=== PATIENT | male | born 1975 | race Caucasian/White ===

== ENCOUNTER → 2017-01-17 | Outpatient (CLI) | payer BC ==
[~2017-01-17] MED LIST: AMBIEN 10MG10 M1 PO; ATIVAN1 MG PO; CLARITIN10 MG PO; CYMBALTA; CYPROHEPTADINE4 MG PO; DESYREL 50MG50 MG PO; FLOMAX 0.40.4 MG/CAP PO; HYDROMORPHONE HY8 MG PO; LAMICTAL; LAMICTAL 100MG100 MG; LEXAPRO20 MG PO; MORPHINE 10 MG/ML EP; NORCO 325 MG-51 TAB PO; OPANA ER20 MG PO; PRILOSEC10 MG PO; ZOFRAN 4MG T4 MG/TAB PO
== END ==
LOC: BHSO 09:48
DX: F41.1 Generalized anxiety disorder (principal)

== ENCOUNTER → 2017-02-25 | Outpatient (CLI) | payer BC | LOC: BHSO 10:14 | DX: F41.1 Generalized anxiety disorder (principal) ==

== ENCOUNTER → 2017-04-21 | Outpatient (CLI) | payer BC | LOC: BHSO 09:41 | DX: F41.1 Generalized anxiety disorder (principal) ==

== ENCOUNTER → 2018-02-03 | Outpatient (CLI) | payer BC | LOC: BHSO 11:19 | DX: F33.41 Major depressive disorder, recurrent, in partial remission (principal) | CPT/HCPCS: G0463 ==

== ENCOUNTER → 2018-03-19 | Outpatient (REF) ==
[2018-03-19 09:17] LABS: THYROID STIMULATING HORMONE 0.943 uIU/mL (0.465-4.680)
== END ==
LOC: ZLAB.WCH 08:29
PROVIDERS: Family Medicine
DX: Z01.89 Encounter for other specified special examinations (principal)

== ENCOUNTER → 2018-05-07 | Outpatient (CLI) | payer BC | LOC: BHSO 11:09 | DX: F33.42 Major depressive disorder, recurrent, in full remission (principal) | CPT/HCPCS: G0463 ==

== ENCOUNTER → 2018-11-02 | Outpatient (CLI) | payer BC | LOC: BHSO 08:41 | DX: F41.1 Generalized anxiety disorder (principal) | CPT/HCPCS: G0463 ==

== ENCOUNTER 2018-11-12 05:31 | Day surgery (SDC) | payer BC ==
[~2018-11-12] VITALS: Ht 182.9 cm; Wt 142.0 kg
[2018-11-12 06:08] VITALS: BP 139/94; PULSE 86; TEMP 98.1
[2018-11-12] MEDS ORDERED: PERIACTIN 4MG TA4 MG PO (06:42)
[2018-11-12] MEDS ORDERED: CYMBALTA 60MG60 MG PO (06:43)
[2018-11-12] MEDS ORDERED: MOBIC15 MG PO (06:48)
[2018-11-12] MEDS ORDERED: PRILOTC PO (06:49)
[2018-11-12] MEDS ORDERED: COLACE 100100 MG/CAP PO (06:49)
[2018-11-12] MEDS ORDERED: IBU800 M1 PO (06:50)
[2018-11-12] MEDS ORDERED: DESYREL 100MG100 MG PO (06:50)
[2018-11-12] MEDS ORDERED: ULTRAM 50MG TAB50 MG PO (06:51)
[2018-11-12] MEDS ORDERED: DILAUDID 4MG TAB4 MG PO (06:52)
[2018-11-12] MEDS ORDERED: KLONOPIN 0.5MG0.5 MG PO (06:52)
[2018-11-12] MEDS ORDERED: PYRIDIUM 100MG100 MG PO (06:53)
[2018-11-12] MEDS ORDERED: CIPRO 500MG TA500 MG PO (06:54)
[2018-11-12 08:33] VITALS: BP 136/80; PULSE 87
--- NOTE | 2018-11-12 08:33 | NUR ---
Patient returns to room 8 per cart from PACU and is awake and alert. Temp 97.6 and room air sats 93%. Denies pain or nausea. IV fluids infusing and siderails up x2. Call light in reach. Spouse in room. Drinking water and eating cinnamon roll.
[2018-11-12 08:48] VITALS: BP 128/85; PULSE 86
--- NOTE | 2018-11-12 08:48 | NUR ---
Drinking water and continues to deny pain or nausea. IV fluids infusing. Spouse in room.
[2018-11-12 09:03] VITALS: BP 130/78; PULSE 87
--- NOTE | 2018-11-12 09:03 | NUR ---
Tolerated water and roll without any nausea or vomiting. States voided in the recovery room. IV discontinued and given dismissal instructions for home cares and follow up as needed. Instructed to force fluids. Room air sats 96%. Instructed to wear CPAP today while resting to keep sats above 90%. Denies need for pain medication. Able to dress self.
--- NOTE | 2018-11-12 09:16 | NUR ---
Patient dismissed to home driven by spouse with instructions in hand. Taken to the front door per wheelchair and assisted into car.
[2018-11-12 11:09] VITALS: BP 130/89; PULSE 86; TEMP 97.5
== END 2018-11-12 09:16 | disposition home or self-care (01) ==
LOC: SDCO 05:31
DX: R10.31 Right lower quadrant pain (principal); R39.15 Urgency of urination; R35.0 Frequency of micturition; R30.0 Dysuria; Z87.442 Personal history of urinary calculi; E29.1 Testicular hypofunction; F41.9 Anxiety disorder, unspecified; F32.9 Major depressive disorder, single episode, unspecified; Z79.899 Other long term (current) drug therapy; G47.33 Obstructive sleep apnea (adult) (pediatric)
CPT/HCPCS: J0690; J1100; J1885; J2405; J2704; J3010; J7120; Q9967

== ENCOUNTER → 2019-04-27 | Outpatient (CLI) | payer BC ==
[~2019-04-27] MED LIST changes: +CIPRO 500MG TA500 MG PO; +COLACE 100100 MG/CAP PO; +CYMBALTA 60MG60 MG PO; +DESYREL 100MG100 MG PO; +DILAUDID 4MG TAB4 MG PO; +IBU800 M1 PO; +KLONOPIN 0.5MG0.5 MG PO; +MOBIC15 MG PO; +PERIACTIN 4MG TA4 MG PO; +PRILOTC PO; +PYRIDIUM 100MG100 MG PO; +ULTRAM 50MG TAB50 MG PO
== END ==
LOC: BHSO 09:02
DX: F41.1 Generalized anxiety disorder (principal)
CPT/HCPCS: G0463

== ENCOUNTER → 2019-10-26 | Outpatient (CLI) | payer BC | LOC: BHSO 09:13 | DX: F33.41 Major depressive disorder, recurrent, in partial remission (principal) | CPT/HCPCS: G0463 ==

== ENCOUNTER → 2020-05-22 | Outpatient (CLI) | payer BC | LOC: COL.RAD 13:07 | DX: D17.0 Benign lipomatous neoplasm of skin and subcutaneous tissue of head, face and neck (principal) ==